=== PATIENT | male | born 1995 | race Caucasian/White ===

== ENCOUNTER 2020-11-08 16:27 | Inpatient (IN) | payer OTHER ==
[~2020-11-08] VITALS: Ht 180.3 cm; Wt 72.6 kg
[~2020-11-08 16:27] MED LIST: DELSYM30 MG/5 ML PO; EXPECTORANT200 MG PO; FLONASE 0.05% N16 GM; PREDNISONE 50 M50 MG PO; ZOFRAN4 MG PO
[2020-11-08 18:11] LABS: HEMOGLOBIN 14.7 gm/dl (14.0-17.5); RED BLOOD COUNT 5.1 M/UL (4.20-5.50); WHITE BLOOD COUNT 7.6 K/UL (4.5-11.0)
[2020-11-08 18:34] LABS: BUN/CREATININE RATIO 19 (0-10)
[2020-11-08] MEDS ORDERED: CEPHALEXIN500 M1 PO (20:23)
[2020-11-08] MEDS ORDERED: IBUPROFEN600 MG PO (20:24)
[2020-11-08] MEDS ORDERED: SULFAMETHOXAZO1 EACH PO (20:26)
[2020-11-09 06:29] LABS: RED BLOOD COUNT 5.17 M/UL (4.20-5.50); WHITE BLOOD COUNT 8.4 K/UL (4.5-11.0)
[2020-11-09 06:52] LABS: BUN/CREATININE RATIO 18 (0-10)
[2020-11-10 04:37] LABS: HEMOGLOBIN 14.6 gm/dl (14.0-17.5); RED BLOOD COUNT 5.08 M/UL (4.20-5.50)
[2020-11-10 04:38] LABS: WHITE BLOOD COUNT 10.7 K/UL (4.5-11.0)
[2020-11-10 04:56] LABS: BUN/CREATININE RATIO 23 (0-10)
[2020-11-11 05:24] LABS: WHITE BLOOD COUNT 10.6 K/UL (4.5-11.0)
[2020-11-11 05:52] LABS: BUN/CREATININE RATIO 23 (0-10)
[2020-11-11 05:55] LABS: HEMOGLOBIN 16.8 gm/dl (14.0-17.5); RED BLOOD COUNT 5.79 M/UL (4.20-5.50)
--- NOTE | 2020-11-11 15:56 | NUR ---
1545: PLACED PATIENTS RIGHT HAND IN WARM SOAK OF SUZI-HEX-4 X 20 MINUTES, INSTRUCTED PATIENT TO PERFORMED ROM TO HAND/FINGERS DURING SOAK, RETURN DEMONSTRATION NOTED. 1610: RN PAT-DRIED RIGHT HAND, APPLIED NON-ADHERENT DRESSING, WRAPPED IN ROLLED GAUZE AND SECURED WITH RICKI WRAP. PER ORDER DR. VALLES.
[2020-11-12 05:21] LABS: HEMOGLOBIN 16.8 gm/dl (14.0-17.5); RED BLOOD COUNT 5.87 M/UL (4.20-5.50); WHITE BLOOD COUNT 12.6 K/UL (4.5-11.0)
[2020-11-12] MEDS ORDERED: ZYVOX600 MG PO (10:56)
== END 2020-11-12 13:40 | DRG 854 ==
LOC: ER1 16:27 → CDU 18:55 → MED SURG 4 18:55
PROVIDERS: Orthopaedic Surgery; Physician Assistant; Physician Assistant Medical; ADMIT Internal Medicine
PROC: 0H9FXZX Drainage of Right Hand Skin, External Approach, Diagnostic (ICD-10-PCS; 2020-11-08)
PROC: 0JBJ0ZZ Excision of Right Hand Subcutaneous Tissue and Fascia, Open Approach (ICD-10-PCS; principal; 2020-11-09 08:45)
DX: A41.02 Sepsis due to Methicillin resistant Staphylococcus aureus (principal); L02.511 Cutaneous abscess of right hand; L03.113 Cellulitis of right upper limb; I96 Gangrene, not elsewhere classified; Z20.822 Contact with and (suspected) exposure to COVID-19; R07.89 Other chest pain; F17.210 Nicotine dependence, cigarettes, uncomplicated; J45.909 Unspecified asthma, uncomplicated; F15.10 Other stimulant abuse, uncomplicated; E88.09 Other disorders of plasma-protein metabolism, not elsewhere classified; B95.62 Methicillin resistant Staphylococcus aureus infection as the cause of diseases classified elsewhere
CPT/HCPCS: 10060; 36415; 73201; 80048; 80053; 80202; 82550; 82553; 83605; 84484; 85025; 86140; 87040; 87070; 87077; 87186; 87205; 93005; 94664; 94760; 96365; 96366; 96375; 99284; J0696; J1100; J1885; J2001; J2250; J2405; J2704; J3010; J3370; J7030; J7070; Q9967; U0002